=== PATIENT | female | born 1975 | race Caucasian/White ===

== ENCOUNTER 2019-04-05 14:06 | Outpatient (CLI) | payer BC, SELFPAY ==
--- NOTE | 2019-04-05 | US_ITS ---
WS: [id number] Pelvic ultrasound, 04/05/2019 Clinical Data: LEFT OVARIAN CYST Comparison: Pelvic ultrasound, 01/30/2018. Findings: The uterus measures 5.27 cm x 6.01 cm x 11.03 cm. Small nabothian cysts are seen. The endometrium is 0.52 cm. No intrauterine or abnormal intrauterine mass is seen. The left ovary measures 1.5 to cm x 1.7 cm x 3.56 cm with with a 1.0 x 1.96 x 2.3 simple ovarian cys t.. The right ovary measures 1.77 cm x 1.80 cm x 2.61 cm with small follicles. US/US pelvic with transvaginal Impression: 1. Negative uterus. 2. Left ovarian cyst.
--- NOTE | 2019-04-05 14:12 | US_ITS ---
WS: [id number] Pelvic ultrasound, 04/05/2019 Clinical Data: LEFT OVARIAN CYST Comparison: Pelvic ultrasound, 01/30/2018. Findings: The uterus measures 5.27 cm x 6.01 cm x 11.03 cm. Small nabothian cysts are seen. The endometrium is 0.52 cm. No intrauterine or abnormal intrauterine mass is seen. The left ovary measures 1.5 to cm x 1.7 cm x 3.56 cm with with a 1.0 x 1.96 x 2.3 simple ovarian cys t.. The right ovary measures 1.77 cm x 1.80 cm x 2.61 cm with small follicles.
== END 2019-04-05 14:07 | disposition home or self-care (01) ==
PROVIDERS: Family Provider Nurse Practitioner Family; PCP Nurse Practitioner Family; Visit Provider Nurse Practitioner Family
DX: N83.202 Unspecified ovarian cyst, left side (principal)
CPT/HCPCS: 76830; 76856

== ENCOUNTER 2019-05-07 20:00 | Outpatient (CLI) | payer BC, SELFPAY | END 2019-05-07 20:01 | disposition home or self-care (01) | LOC: SLEEP 05-08 08:33 | PROVIDERS: Visit Provider Nurse Practitioner Family | DX: G47.33 Obstructive sleep apnea (adult) (pediatric) (principal) | CPT/HCPCS: 95810; 95811 ==

== ENCOUNTER → 2019-05-31 15:26 | Outpatient (BNVA) | payer BC, SELFPAY | PROVIDERS: Visit Provider Nurse Practitioner Family | DX: R05 Cough (principal); H66.003 Acute suppurative otitis media without spontaneous rupture of ear drum, bilateral; I10 Essential (primary) hypertension; R07.1 Chest pain on breathing | CPT/HCPCS: 71046; 85025 ==

== ENCOUNTER → 2019-06-06 09:47 | Outpatient (BNVA) | payer BC, SELFPAY | PROVIDERS: Visit Provider Family Medicine | DX: R09.89 Other specified symptoms and signs involving the circulatory and respiratory systems (principal); I10 Essential (primary) hypertension | CPT/HCPCS: 80053; 80061; 84443 ==

== ENCOUNTER 2019-06-21 12:53 | Outpatient (CLI) | payer BC, SELFPAY ==
--- NOTE | 2019-06-21 13:30 | USCV_ITS ---
Jordyn Cervantes Age: 44 Gender: F : 1975 Exam Date: 06/21/2019 13:15 Ordering Phys: Bharati Odom MD Technologist: Stephanie Valdovinos Exam Location: [facility] [place] Indication: AFIB BP: / HR: 86 Rhythm: Sinus Technical Quality: TDS MEASUREMENTS (Male / Female) Normal Values 2D ECHO LV Diastolic Diameter PLAX 4.3 cm 4.2 - 5.9 / 3.9 - 5.3 cm LV Systolic Diameter PLAX 2.8 cm LV Chamber Size 2.8 cm IVS Diastolic Thickness 1.6 cm 0.6 - 1.0 / 0.6 - 0.9 cm IVS Systolic Thickness 1.8 cm LVPW Diastolic Thickness 1.6 cm 0.6 - 1.0 / 0.6 - 0.9 cm LVPW Systolic Thickness 1.8 cm RV Chamber Size 2.7 cm LVOT Diameter 2.1 cm LV Ejection Fraction 2D Teich 64.7 % LV Ejection Fraction MOD 2C 45.0 % LV Ejection Fraction 2C AL 46.0 % LA Diameter 4.4 cm LA Width 2.6 cm LA Height 2.1 cm RA Width 2.8 cm RA Height 2.8 cm Aorta at Sinotubular Diameter 3.1 cm M-MODE LV Diastolic Diameter MM 5.1 cm 4.2 - 5.9 / 3.9 - 5.3 cm LV Systolic Diameter MM 3.2 cm LV Ejection Fraction MM Teich 65.8 % IVS Diastolic Thickness MM 1.2 cm 0.6 - 1.0 / 0.6 - 0.9 cm IVS Systolic Thickness MM 1.8 cm LVPW Diastolic Thickness MM 1.3 cm 0.6 - 1.0 / 0.6 - 0.9 cm LVPW Systolic Thickness MM 1.9 cm RV Diastolic Diameter MM 1.8 cm Aortic Annulus Diameter 3.3 cm LA Ao Ratio MM 1.3 MV E Point Septal Separation 0.3 cm DOPPLER AV Peak Velocity 151.0 cm/s LVOT Peak Velocity 77.0 cm/s AV Area Cont Eq vti 1.8 cm squared AV Area Cont Eq pk 1.7 cm squared MV Area PHT 5.1 cm squared Mitral E to A Ratio 1.2 MV E' Velocity 10.0 cm/s Mitral E to MV E' Ratio 10.1 Mitral E to LV E' Lateral Ratio 9.0 Mitral E to LV E' Septal Ratio 11.7 TR Peak Velocity 119.4 cm/s TR Peak Gradient 5.7 mmHg TR Mean Velocity 79.7 cm/s TR Mean Gradient 3.0 mmHg TR Velocity Time Integral 23.9 cm TV Peak E Velocity 72.0 cm/s PV Peak Velocity 73.0 cm/s RV Acceleration Time 0.2 s RV Ejection Time 0.3 s RV AcT/ET 0.5 FINDINGS Left Ventricle Possibly normal LV size ejection fraction. Right Ventricle The right ventricle is normal in size and function. Right Atrium The right atrium is normal in size. Left Atrium Left atrium appears to be of upper limit of normal size Mitral Valve No gross abnormalities noted. Aortic Valve Could not be visualized well Tricuspid Valve Trace tricuspid valve regurgitation. Pulmonic Valve Pulmonic valve not well visualized. Pericardium Normal pericardium without effusion. Aorta Normal ascending aorta dimension. CONCLUSIONS Possibly normal LV size ejection fraction 55%. No gross wall motion normalities noted. Left atrium appears to be of upper limit of normal size. Trace tricuspid valve regurgitation. There is no pericardial effusion. There are no intracardiac masses. Comparison with the previous study is difficult because of the difference in the technical quality. Dr Parker Goodman MD FAC (Electronically Signed) Final Date: 21 June 2019 15:29 S
== END 2019-06-21 12:54 | disposition home or self-care (01) ==
PROVIDERS: Family Provider Family Medicine; PCP Family Medicine; Visit Provider Family Medicine
DX: I07.1 Rheumatic tricuspid insufficiency (principal); R09.89 Other specified symptoms and signs involving the circulatory and respiratory systems
CPT/HCPCS: 93306

== ENCOUNTER 2019-10-15 06:00 | Outpatient (RCR) | payer BC, SELFPAY | END 2019-11-01 23:59 | disposition home or self-care (01) | LOC: SPT 06:00 | PROVIDERS: PCP Family Medicine; Referring Provider Neurological Surgery; Visit Provider Neurological Surgery | DX: Z98.1 Arthrodesis status (principal) | CPT/HCPCS: 97110; 97161 ==

== ENCOUNTER 2019-11-02 06:00 | Outpatient (RCR) | payer BC, SELFPAY | END 2019-12-02 23:59 | disposition home or self-care (01) | LOC: SPT 06:00 | PROVIDERS: PCP Family Medicine; Referring Provider Neurological Surgery; Visit Provider Neurological Surgery | DX: Z98.1 Arthrodesis status (principal) | CPT/HCPCS: 97110 ==

== ENCOUNTER → 2019-12-02 15:36 | Outpatient (BNVA) | payer BC, SELFPAY | PROVIDERS: PCP Family Medicine; Referring Provider Family Medicine; Visit Provider Podiatrist Foot & Ankle Surgery | DX: M79.671 Pain in right foot (principal) | CPT/HCPCS: 73630 ==

== ENCOUNTER → 2020-01-01 11:00 | Outpatient (BNVA) | payer BC, SELFPAY | PROVIDERS: PCP Family Medicine; Visit Provider Family Medicine | DX: I10 Essential (primary) hypertension (principal); M54.5 Low back pain; G89.29 Other chronic pain; J45.20 Mild intermittent asthma, uncomplicated; J01.00 Acute maxillary sinusitis, unspecified | CPT/HCPCS: 80053; 80061; 84443; 85025 ==

== ENCOUNTER → 2020-01-08 15:54 | Outpatient (BNVA) | payer BC, SELFPAY | PROVIDERS: PCP Family Medicine; Visit Provider Podiatrist Foot & Ankle Surgery | DX: T14.8XXA Other injury of unspecified body region, initial encounter (principal) | CPT/HCPCS: 73630 ==

== ENCOUNTER 2020-03-11 18:56 | Emergency (ER) | payer BC, SELFPAY ==
[2020-03-11 19:07] VITALS: BP 167/91; PULSE 100; RESP 17; TEMP 36.7; O2SAT 99; BMI 53.1
--- NOTE | 2020-03-11 19:42 | W.ED.GENADLT ---
HPI - General Adult General: Chief complaint: General Medical Stated complaint: numbness on left side of face Time Seen by Provider: 03/11/20 19:42 History of Present Illness: HPI narrative: Patient is a well-appearing 44-year-old female seen for left-sided facial numbness. She describes the sensation as fuzzy, and states that it originated around the left eye roughly 2 weeks ago, but in the last day has spread to her left forehead, cheek, and perioral region. Sensation is intact, but she states it feels like the left side of my face is drunk. She denies pain, hearing loss, visual disturbance, loss of taste, and states that she has not noticed any drooping when she looks at herself in the mirror. She has no history of stroke, atrial fibrillation, TIA, complex migraines, recent sickness or fever. She has never been diagnosed with diabetes. Review of Systems General: Reports: 10 or more systems reviewed and unremarkable except in HPI and below PFSH ED PFSH: Medical History (Updated 03/11/20 @ 21:44 by Dayne Walsh MD) Asthma Asthma thought to be because of her allergies and she states that as long as she takes her medication and her Advair she does not need to use any albuterol inhalers. Chronic pain Hypertension Diagnosed in her mid 20s and has been on medication since then. She follows up with her primary care provider. IBS (irritable bowel syndrome) Diagnosed since her 30s. Not currently on any medication. Watches her diet. No pertinent past medical history Denies diabetes, seizures, DVT/PE PCP: Dr. Bharati Odom Polycystic disease, ovaries Patient states that she was diagnosed with PCOS in her 30s. Bleeding and endometrial protection currently with the Mirena. Surgical History History of back surgery 09/2019--- performed in [place]-had L4 and L5 fused Hx of section 2007 in [place] Hx of laparoscopy At the age of 19--laparoscopy performed for ovarian cysts-she was told that the cyst had spontaneously ruptured and she did not have to have anything done. Family History Family/Other Diabetes maternal aunt Stroke maternal aunt Hypertension maternal aunt, maternal uncle Father Hypertension Hyperlipidemia Mother Hypertension Hyperlipidemia Thyroid condition Grandmother Hypertension maternal Grandfather Hypertension maternal Denies family history of Colon cancer Ovarian cancer Heart disease Breast cancer Uterine cancer Social History Smoking and tobacco status: never smoked Second hand smoke exposure: Yes Alcohol intake: never Lives independently: Yes Household members: spouse and children Housing: House Marital status: Current occupational status: employed Current gender identity: Female Physical Exam Const: COMMON NORMALS: no acute distress, patient oriented x3 and alert HENMT: COMMON NORMALS: normocephalic and atraumatic HEAD & SCALP: normocephalic and atraumatic FACE & SINUS: normal facial exam (Patient states that sensation of light touch on both sides of the face feel) and face symmetric; no sinus tenderness, no ecchymosis, no erythema and no edema Eye: COMMON NORMALS: Equal, round and reactive pupils present, EOMs intact bilaterally and no scleral icterus PUPIL: Yes Equal, round and reactive pupils present Resp: COMMON NORMALS: normal respiratory effort and No retractions Cardio: COMMON NORMALS: regular rate, regular rhythm and No murmurs present (Cardio) RATE: regular rate RHYTHM: regular rhythm GI: COMMON NORMALS: Normal to inspection, nondistended, normoactive bowel sounds present, Soft to palpation and non-tender PALPATION: Yes Soft to palpation Neuro: COMMON NORMALS: patient oriented x3 SENSORIUM/ORIENTATION: Yes alert Skin: COMMON NORMALS: no rashes or lesions noted GENERAL SKIN EXAM: no rashes or lesions noted Course Vital Signs: Vital signs: Vital Signs Temperature 98.1 F 03/11/20 19:07 Pulse Rate 110 H 03/11/20 21:51 Respiratory Rate 16 03/11/20 21:51 Blood Pressure 140/91 03/11/20 21:51 Pulse Oximetry 96 03/11/20 21:51 MDM - General Adult MDM Narrative: Medical decision making narrative: Patient remained hemodynamically stable throughout ED course. CT of the head shows no acute process. Laboratory evaluation reveals borderline elevated glucose. I discussed with her that sometimes high glucose levels can cause the small arteries feeding nerves to stop functioning, causing various neurologic effects. She agrees to follow close with primary care to work on a strategy to keep sugars down. She be discharged in stable condition. Lab Data: Labs: Lab Results 03/11/20 03/11/20 Range/Units 20:55 20:55 WBC 9.3 (4.0-10.0) 10^3/ uL RBC 4.63 (4.1-5.3) 10^6/u L Hgb 13.6 (11.5-15.3) g/dL Hct 40.1 (37.0-47.0) % MCV 86.6 (81-99) fL MCH 29.4 (28.0-34.0) pg MCHC 33.9 (30.0-36.0) g/dL RDW 13.0 (12.1-15.1) % Plt Count 317 (130-400) 10^3/c mm MPV 9.5 (7.4-10.4) fL Neut % (Auto) 65.3 % Lymph % (Auto) 26.2 % [place] % (Auto) 6.1 % Eos % (Auto) 1.8 % Baso % (Auto) 0.3 % Neut # (Auto) 6.09 (1.8-7.7) 10^3/u L Lymph # (Auto) 2.4 (0.8-4.8) 10^3/u L [place] # (Auto) 0.6 (0.2-0.9) 10^3/u L Eos # (Auto) 0.2 (0.0-0.8) 10^3/u L Baso # (Auto) 0.0 (0.0-0.1) 10^3/u L Nucleated RBC % (a uto) 0 % Nucleated RBCs # 0.0 /100WBC Sodium 140 (136-145) mmol/L Potassium 3.4 L (3.5-5.1) mmol/L Chloride 101 (98-107) mmol/L Carbon Dioxide 29 (22-29) mmol/L Anion Gap 13.4 (5-19) BUN 11 (6-20) mg/dL Creatinine 0.7 (0.5-0.9) mg/dL GFR Calculation 90.9 (90-130) mL/min Glucose 146 H (65-115) mg/dL Calculated Osmolal ity 292 (285-295) mOsm/k g Calcium 9.7 (8.5-10.5) mg/dL Total Bilirubin 0.7 (0.15-1.2) mg/dL AST 45 H (0-32) U/L ALT 37 H (0-33) U/L Alkaline Phosphata se 94 (35-105) IU/L Total Protein 7.3 (6.6-8.7) g/dL Albumin 4.3 (3.5-5.2) g/dL Globulin 3.0 (1.3-4.6) g/dL Discharge Plan Discharge Patient Disposition: Home Clinical Impression: Left facial numbness, Blood glucose elevated Condition: Stable Prescriptions: No Action cholecalciferol (vitamin D3) 25 mcg (1,000 unit) capsule 25 mcg PO DAILY@0600 RF: 0 ascorbic acid (vitamin C) 500 mg capsule 500 mg PO DAILY@0600 RF: 0 calcium carbonate [Calcium 600] 600 mg calcium (1,500 mg) tablet 900 mg PO DAILY@0600 RF: 0 Mirena 20 mcg/24 hours (5 yrs) 52 mg intrauterine device See Rx Instructions .ROUTE .COMPLEX RF: 0 baclofen 10 mg tablet 10 mg PO TID PRN (Reason: muscle spasm) Qty: 90 RF: 2 fexofenadine-pseudoephedrine [Kalli-D 12 Hour] 60-120 mg tablet extended release 12 hr 1 tab PO Q12H PRN (Reason: allergy symptoms) Qty: 60 RF: 2 fluticasone propion-salmeterol 250-50 mcg/dose blister with device See Rx Instructions .ROUTE .COMPLEX Qty: 60 RF: 2 (DME) Bone Stimulator See Rx Instructions .Route .MEDSUPPLY Qty: 1 RF: 0 Lyrica 50 mg PO TID RF: 0 zinc 50 mg Tablet 50 mg PO DAILY@0600 RF: 0 Glucosamine 1 tab PO DAILY@0600 RF: 0 magnesium 1 tab PO DAILY@0600 RF: 0 metoprolol tartrate 50 mg tablet 50 mg PO BID@0600,1900 RF: 0 triamterene-hydrochlorothiazid 37.5-25 mg tablet 1 tab PO DAILY@0600 RF: 0 Discharge Orders: Discharge ED (Routine); Ordered 03/11/20 Ordered By: Dayne Walsh Referrals: Bharati Odom MD [Primary Care Provider] - Activity Restrictions/Additional Instructions: CT the head shows no evidence of stroke, intracranial bleed, intracranial mass, or other abnormality. Oftentimes, high sugar levels in the blood can cause neurologic symptoms. Please follow-up with your primary care physician to discuss strategies to keep sugar levels normal. Coding Level of Care Code ED Cylinder Inspector for Rubi Cobian
[2020-03-11 19:46] VITALS: BP 156/97; PULSE 105; RESP 17; O2SAT 100
--- NOTE | 2020-03-11 20:17 | CTR_ITS ---
PROCEDURE INFORMATION: Exam: CT Head Without Contrast Exam date and time: 03/11/2020 8:25 PM Age: 44 years old Clinical indication: Numbness / parasthesia; Left; Additional info: Facial numbness TECHNIQUE: Imaging protocol: Computed tomography of the head without contrast. Radiation optimization: All CT scans at this facility use at least one of these dose optimization techniques: automated exposure control; mA and/or kV adjustment per patient size (includes targeted exams where dose is matched to clinical indication); or iterative reconstruction. COMPARISON: CT head wo con* [id number] 02/05/2018 4:03 AM RADIATION DOSE METRICS: Total DLP (mGy-cm): 876.9 FINDINGS: Brain: Normal. No hemorrhage. Unremarkable white matter. No mass effect. Cerebral ventricles: No ventriculomegaly. Bones/joints: Unremarkable. No acute fracture. Paranasal sinuses: Visualized sinuses are unremarkable. No fluid levels. Mastoid air cells: Visualized mastoid air cells are well aerated. Soft tissues: Unremarkable. CT/CT head wo con* [id number] IMPRESSION: No acute intracranial abnormality. Radiation Dose CTDIVOL = (mGy): DLP = 876.9 (mGy-cm)
[2020-03-11 21:08] LABS: Basophils % 0.3 %; Eosinophils # 0.2 10^3/uL (0.0-0.8); Eosinophils % 1.8 %; Hematocrit 40.1 % (37.0-47.0); Hemoglobin 13.6 g/dL (11.5-15.3); Lymphocytes # 2.4 10^3/uL (0.8-4.8); Lymphocytes % 26.2 %; Mean Corpuscular HGB Conc 33.9 g/dL (30.0-36.0); Mean Corpuscular Hemoglobin 29.4 pg (28.0-34.0); Mean Corpuscular Volume 86.6 fL (81-99); Mean Platelet Volume 9.5 fL (7.4-10.4); Monocytes # 0.6 10^3/uL (0.2-0.9); Monocytes % 6.1 %; Neutrophils # 6.09 10^3/uL (1.8-7.7); Neutrophils % 65.3 %; Nucleated Red Blood Cells % 0 %; Platelet Count 317 10^3/cmm (130-400); Red Blood Count 4.63 10^6/uL (4.1-5.3); White Blood Count 9.3 10^3/uL (4.0-10.0)
[2020-03-11 21:25] LABS: Alanine Aminotransferase 37 U/L (0-33); Albumin Level 4.3 g/dL (3.5-5.2); Alkaline Phosphatase 94 IU/L (35-105); Anion Gap 13.4 (5-19); Aspartate Amino Transferase 45 U/L (0-32); Blood Urea Nitrogen 11 mg/dL (6-20); Calcium 9.7 mg/dL (8.5-10.5); Carbon Dioxide 29 mmol/L (22-29); Chloride 101 mmol/L (98-107); Glomerular Filtration Rate 90.9 mL/min (90-130); Glucose 146 mg/dL (65-115); Osmolality Calculated 292 mOsm/kg (285-295); Potassium 3.4 mmol/L (3.5-5.1); Sodium 140 mmol/L (136-145); Total Bilirubin 0.7 mg/dL (0.15-1.2); Total Protein 7.3 g/dL (6.6-8.7)
[2020-03-11 21:29] VITALS: BP 140/91; PULSE 104; RESP 17; O2SAT 99
[2020-03-11 21:30] VITALS: BP 140/91; PULSE 104; RESP 17; O2SAT 99
[2020-03-11 21:51] VITALS: BP 140/91; PULSE 110; RESP 16; O2SAT 96
== END 2020-03-11 21:52 | disposition home or self-care (01) ==
PROVIDERS: Emergency Provider Student in an Organized Health Care Education/Training Program; PCP Family Medicine
DX: R20.0 Anesthesia of skin (principal); R73.9 Hyperglycemia, unspecified; I10 Essential (primary) hypertension; Z77.22 Contact with and (suspected) exposure to environmental tobacco smoke (acute) (chronic)
CPT/HCPCS: 12345; 70450; 80053; 85025; 99282; 99283

== ENCOUNTER 2020-03-13 11:14 | Outpatient (CLI) | payer BC, SELFPAY ==
--- NOTE | 2020-03-13 11:20 | XR_ITS ---
WS: [id number] FOOT RIGHT TECHNIQUE: 3 views of the right foot CLINICAL INFORMATION: S99.929A - Unspecified injury of unspecified foot, initial encounter COMPARISON: None. FINDINGS: Diffuse soft tissue edema. Osteopenia. Hallux valgus. No acute fractures. Normal metatarsals. 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 Plantar and Achilles calcanea l spurring. XR/XR foot RT min 3V* [id number] IMPRESSION: 1. Ununited fracture base of the fifth metatarsal is unchanged in appearance. 2. Diffuse soft tissue edema lower leg and foot. 3. Plantar and Achilles calcaneal spurring. 4. Hallux valgus.
== END 2020-03-13 11:15 | disposition home or self-care (01) ==
LOC: RADWPI 11:19
PROVIDERS: PCP Family Medicine; Visit Provider Podiatrist Foot & Ankle Surgery
DX: S92.351A Displaced fracture of fifth metatarsal bone, right foot, initial encounter for closed fracture (principal); X58.XXXA Exposure to other specified factors, initial encounter; R60.0 Localized edema; M77.31 Calcaneal spur, right foot; M20.11 Hallux valgus (acquired), right foot
CPT/HCPCS: 73630

== ENCOUNTER 2020-03-26 09:54 | Outpatient (CLI) | payer BC, SELFPAY ==
--- NOTE | 2020-03-26 10:03 | MM_ITS ---
WS: [id number] BILATERAL SCREENING DIGITAL MAMMOGRAM WITH CAD HISTORY: SCREENING COMPARISON: 11/06/2018 and 08/03/2016 Bilateral CC and MLO views submitted. Computer aided detection analyzed. Breast composition: There are scattered areas of fibroglandular density. No suspicious masses, microc alcifications or architectural distortion. MM/[place] [id number] IMPRESSION: BI-RADS: 1-Negative FOLLOW UP: 1 Year Follow-up
== END 2020-03-26 09:55 | disposition home or self-care (01) ==
LOC: RADSHAW 09:56
PROVIDERS: PCP Family Medicine; Visit Provider Obstetrics & Gynecology
DX: Z12.31 Encounter for screening mammogram for malignant neoplasm of breast (principal)
CPT/HCPCS: 77067

== ENCOUNTER → 2020-04-10 09:22 | Outpatient (BNVA) | payer OTHER, SELFPAY | PROVIDERS: PCP Family Medicine; Visit Provider Family Medicine | DX: R30.0 Dysuria (principal); M54.5 Low back pain; G89.29 Other chronic pain; R20.0 Anesthesia of skin; R73.09 Other abnormal glucose | CPT/HCPCS: 80053; 81000; 83036 ==

== ENCOUNTER 2020-04-20 08:33 | Outpatient (CLI) | payer OTHER, SELFPAY ==
--- NOTE | 2020-04-20 08:39 | XR_ITS ---
WS: [id number] FOOT RIGHT TECHNIQUE: 3 views of the right foot CLINICAL INFORMATION: S92.351A - Displaced fracture of fifth metatarsal bone, right foot, initial enc ounter for closed fracture COMPARISON: March 13, 2020 FINDINGS: Nondisplaced fracture involving the base of fifth metatarsal is unchanged in appearance. No significa nt interval healing compared to prior examination. Osteopenia. Hallux valgus. Plantar and Achilles ca lcaneal spurring. XR/XR foot RT min 3V* [id number] IMPRESSION: 1. Ununited fracture base of the fifth metatarsal is unchanged. 2. Plantar and Achilles calcaneal spurring. 3. Hallux valgus.
== END 2020-04-20 08:34 | disposition home or self-care (01) ==
LOC: RADWPI 08:38
PROVIDERS: PCP Family Medicine; Visit Provider Podiatrist Foot & Ankle Surgery
DX: S92.351A Displaced fracture of fifth metatarsal bone, right foot, initial encounter for closed fracture (principal); X58.XXXA Exposure to other specified factors, initial encounter; M77.31 Calcaneal spur, right foot; M20.11 Hallux valgus (acquired), right foot
CPT/HCPCS: 73630

== ENCOUNTER 2020-06-05 09:56 | Outpatient (CLI) | payer OTHER, SELFPAY ==
[2020-06-05 11:34] LABS: Free T4 Free Thyroxine 0.76 ng/dL (0.82-1.77); Thyroid Stimulating Hormone 1.51 uIU/mL (0.27-4.20)
== END 2020-06-05 09:57 | disposition home or self-care (01) ==
PROVIDERS: PCP Family Medicine; Visit Provider Internal Medicine
DX: E28.2 Polycystic ovarian syndrome (principal); R00.2 Palpitations; R63.5 Abnormal weight gain; R73.03 Prediabetes; S92.351K Displaced fracture of fifth metatarsal bone, right foot, subsequent encounter for fracture with nonunion
CPT/HCPCS: 36415; 73630; 84439; 84443; 99204

== ENCOUNTER 2020-06-07 10:35 | Outpatient (CLI) | payer OTHER, SELFPAY ==
[2020-06-07 12:13] LABS: Urine Creatinine 74 mg/dL (28-217)
[2020-06-07 12:51] LABS: Total Volume Urine 2450 ml
[2020-06-10 17:07] LABS: Free Cortisol Urine 9.3 mcg/24 h (4.0-50.0); Total Urine 2450 mL
== END 2020-06-07 10:36 | disposition home or self-care (01) ==
PROVIDERS: PCP Family Medicine; Visit Provider Internal Medicine
DX: R63.5 Abnormal weight gain (principal)
CPT/HCPCS: 82530; 82570

== ENCOUNTER 2020-06-12 08:13 | Outpatient (CLI) | payer OTHER, SELFPAY ==
[2020-06-12 10:52] LABS: Free T4 Free Thyroxine 0.78 ng/dL (0.82-1.77); Thyroid Stimulating Hormone 1.68 uIU/mL (0.27-4.20)
== END 2020-06-12 08:14 | disposition home or self-care (01) ==
PROVIDERS: PCP Family Medicine; Visit Provider Internal Medicine
DX: E28.2 Polycystic ovarian syndrome (principal); M84.30XA Stress fracture, unspecified site, initial encounter for fracture; R73.03 Prediabetes; X58.XXXA Exposure to other specified factors, initial encounter
CPT/HCPCS: 36415; 84439; 84443

== ENCOUNTER 2020-07-03 11:29 | Outpatient (CLI) | payer OTHER, SELFPAY | END 2020-07-03 11:30 | disposition home or self-care (01) | LOC: SPT 11:35 | PROVIDERS: PCP Family Medicine; Visit Provider Podiatrist Foot & Ankle Surgery | DX: Z46.89 Encounter for fitting and adjustment of other specified devices (principal); S92.351K Displaced fracture of fifth metatarsal bone, right foot, subsequent encounter for fracture with nonunion; X58.XXXD Exposure to other specified factors, subsequent encounter | CPT/HCPCS: 97760; L3030 ==

== ENCOUNTER → 2020-07-17 15:17 | Outpatient (BNVA) | payer OTHER, SELFPAY | PROVIDERS: PCP Family Medicine; Visit Provider Podiatrist Foot & Ankle Surgery | DX: S92.351K Displaced fracture of fifth metatarsal bone, right foot, subsequent encounter for fracture with nonunion (principal); X58.XXXD Exposure to other specified factors, subsequent encounter; M79.671 Pain in right foot | CPT/HCPCS: 73630 ==

== ENCOUNTER 2020-09-04 15:06 | Outpatient (CLI) | payer OTHER, SELFPAY ==
--- NOTE | 2020-09-04 15:15 | MR_ITS ---
WS: [id number] MRI HEAD WITH CONTRAST TECHNIQUE: Sagittal T1, T2 axial, T2 axial FLAIR, axial susceptibility weighted imaging, axial diffus ion weighted images, and coronal T2 images were obtained. Pre and post-T1 axial and post T1 coronal i mages. ADC and FSPGR images. CLINICAL INFORMATION: E03.8 - Other specified hypothyroidism COMPARISON: CT March 11, 2020. MRI 11 FINDINGS: No evidence of restricted diffusion to suggest acute ischemia. Ventricular system and basal cisterns are patent. No suspicious intracranial signal abnormalities. Normal nuno-white differentiation. No ev idence of mass or mass effect. Normal posterior fossa. Normal vascular flow voids at the skull base. No extra-axial fluid collection s. Paranasal sinuses and mastoid air cells are well aerated. Partially empty sella. Normal optic chiasm and pituitary infundibulum. Normal cavernous sinuses and M lashell's cave. No evidence of sellar or suprasellar mass. No evidence of pituitary microadenoma. No ab normal intracranial enhancement. Normal dural venous sinuses. MR/MR head wo/w con [id number] IMPRESSION: 1. No evidence of restricted diffusion to suggest acute ischemia. 2. No suspicious intracranial signal abnormalities. Normal nuno-white differen tiation. 3. Normal optic chiasm and pituitary infundibulum. Partially empty sella uncha nged since 2017. 4. No evidence of sellar or suprasellar mass. No evidence of microadenoma. 5. No abnormal intracranial enhancement. 6. No other significant findings.
[2020-09-04] MEDS: gadobenate dimeglumine 20 mL vial IV (16:00)
== END 2020-09-04 15:07 | disposition home or self-care (01) ==
LOC: RADSHAW 15:13
PROVIDERS: PCP Family Medicine; Visit Provider Internal Medicine
DX: E03.8 Other specified hypothyroidism (principal); I10 Essential (primary) hypertension
CPT/HCPCS: 70553; 80053; 80061; 84443; 85025; A9577

== ENCOUNTER → 2020-09-18 13:50 | Outpatient (BNVA) | payer OTHER, SELFPAY | PROVIDERS: PCP Family Medicine; Visit Provider Podiatrist Foot & Ankle Surgery | DX: S92.351K Displaced fracture of fifth metatarsal bone, right foot, subsequent encounter for fracture with nonunion (principal); M79.673 Pain in unspecified foot; X58.XXXD Exposure to other specified factors, subsequent encounter | CPT/HCPCS: 73630 ==

== ENCOUNTER 2020-09-25 08:17 | Outpatient (CLI) | payer OTHER, SELFPAY ==
[2020-09-25 09:14] LABS: Anion Gap 16.2 (5-19); Blood Urea Nitrogen 11 mg/dL (6-20); Calcium 9.3 mg/dL (8.5-10.5); Carbon Dioxide 26 mmol/L (22-29); Chloride 100 mmol/L (98-107); Free T4 Free Thyroxine 0.75 ng/dL (0.82-1.77); Glomerular Filtration Rate 90.5 mL/min (90-130); Glucose 89 mg/dL (65-115); Osmolality Calculated 285 mOsm/kg (285-295); Potassium 4.2 mmol/L (3.5-5.1); Sodium 138 mmol/L (136-145)
[2020-09-25 09:42] LABS: Prolactin 15.92 ng/mL (4.8-23.3)
[2020-09-29 16:17] LABS: Adrenocorticotropic Hormone 17 pg/mL (6-50)
== END 2020-09-25 08:18 | disposition home or self-care (01) ==
LOC: LAB 08:22
PROVIDERS: PCP Family Medicine; Visit Provider Internal Medicine
DX: E03.8 Other specified hypothyroidism (principal)
CPT/HCPCS: 36415; 80048; 82024; 82533; 84146; 84439

== ENCOUNTER 2020-11-04 07:43 | Outpatient (CLI) | payer OTHER, SELFPAY ==
[2020-11-04 08:37] LABS: Anion Gap 13.9 (5-19); Blood Urea Nitrogen 10 mg/dL (6-20); Calcium 8.6 mg/dL (8.5-10.5); Carbon Dioxide 26 mmol/L (22-29); Chloride 101 mmol/L (98-107); Glomerular Filtration Rate 108.1 mL/min (90-130); Glucose 112 mg/dL (65-115); Osmolality Calculated 284 mOsm/kg (285-295); Potassium 3.9 mmol/L (3.5-5.1); Sodium 137 mmol/L (136-145)
[2020-11-04 08:44] LABS: Free T4 Free Thyroxine 0.86 ng/dL (0.82-1.77)
== END 2020-11-04 07:44 | disposition home or self-care (01) ==
LOC: LAB 07:48
PROVIDERS: PCP Family Medicine; Visit Provider Internal Medicine
DX: E03.8 Other specified hypothyroidism (principal); I10 Essential (primary) hypertension; R73.03 Prediabetes; R79.89 Other specified abnormal findings of blood chemistry
CPT/HCPCS: 36415; 80048; 84439

== ENCOUNTER 2020-12-15 12:50 | Outpatient (CLI) | payer OTHER, SELFPAY ==
[2020-12-15 13:53] LABS: Prolactin 9.38 ng/mL (4.8-23.3)
[2020-12-15 14:19] LABS: Cortisol Random 9.14 ug/dL (2.47-19.5); Free T4 Free Thyroxine 1.23 ng/dL (0.82-1.77)
[2020-12-20 23:47] LABS: Adrenocorticotropic Hormone 26 pg/mL (6-50)
== END 2020-12-15 12:51 | disposition home or self-care (01) ==
LOC: LAB 13:04
PROVIDERS: PCP Family Medicine; Visit Provider Internal Medicine
DX: E03.8 Other specified hypothyroidism (principal)
CPT/HCPCS: 36415; 82024; 82533; 84146; 84439

== ENCOUNTER → 2020-12-17 08:14 | Outpatient (BNVA) | payer OTHER, SELFPAY | PROVIDERS: PCP Family Medicine; Visit Provider Podiatrist Foot & Ankle Surgery | DX: S92.351K Displaced fracture of fifth metatarsal bone, right foot, subsequent encounter for fracture with nonunion (principal); M20.11 Hallux valgus (acquired), right foot | CPT/HCPCS: 73630 ==

== ENCOUNTER 2021-01-01 15:31 | Outpatient (CLI) | payer OTHER, SELFPAY ==
--- NOTE | 2021-01-01 15:45 | XR_ITS ---
WS: [id number] SCREENING DEXA SCAN Proficient CLINICAL INFORMATION: central hypogonadism, history of estrogen deficiency COMPARISON: None. FINDINGS: Bone mineral density in the left forearm measures 0.93 g/ cm2 with a T score of 0.7 and Z score of 0. 7 Left femoral neck bone mineral density measures 1.374 g/cm2. This corresponds to a T score of 2.9 and Z score of 2.4. Right femoral neck bone mineral density measures 1.274 g/cm2. This corresponds to a T score 2.1of and Z score of 1.6. Mean femoral neck bone mineral density measures 1.324 g/cm2. This corresponds to a T score of 2.5 and Z score of 2.0. XR/XR DEXA axial skeleton* [id number] IMPRESSION: Normal bone mineralization. Patient's FRAX calculated 10 year probability for major osteoporotic fracture i s 3.6 % and osteoporotic hip fracture is 0.0%.
== END 2021-01-01 15:32 | disposition home or self-care (01) ==
PROVIDERS: PCP Family Medicine; Visit Provider Internal Medicine
DX: E23.0 Hypopituitarism (principal)
CPT/HCPCS: 77080

== ENCOUNTER → 2021-03-11 08:08 | Outpatient (BNVA) | payer OTHER, SELFPAY | PROVIDERS: PCP Family Medicine; Visit Provider Obstetrics & Gynecology | DX: Z30.431 Encounter for routine checking of intrauterine contraceptive device (principal) | CPT/HCPCS: 76830 ==

== ENCOUNTER → 2021-04-13 10:10 | Outpatient (BNVA) | payer OTHER, SELFPAY | PROVIDERS: PCP Family Medicine; Visit Provider Nurse Practitioner Family | DX: Z20.822 Contact with and (suspected) exposure to COVID-19 (principal) | CPT/HCPCS: 87635 ==

== ENCOUNTER 2021-04-16 07:44 | Outpatient (CLI) | payer OTHER, SELFPAY ==
[2021-04-16 07:50] VITALS: BP 117/80; PULSE 93; RESP 16; TEMP 36.2; O2SAT 98; BMI 49.6
[2021-04-16 08:42] VITALS: BP 110/78; PULSE 90; RESP 18; TEMP 36.6; O2SAT 96
[2021-04-16 09:36] VITALS: BP 104/65; PULSE 82; RESP 16; TEMP 36.4; O2SAT 97
== END 2021-04-16 07:45 | disposition home or self-care (01) ==
LOC: OPS 07:45
PROVIDERS: PCP Family Medicine; Visit Provider Family Medicine
DX: U07.1 COVID-19 (principal)
CPT/HCPCS: 96365

== ENCOUNTER 2021-04-30 07:59 | Outpatient (CLI) | payer OTHER, SELFPAY ==
--- NOTE | 2021-04-30 08:00 | MM_ITS ---
WS: [id number] BILATERAL SCREENING DIGITAL MAMMOGRAM WITH CAD HISTORY: Screening exam. COMPARISON: 03/26/2020, 11/06/2018 Bilateral CC and MLO views submitted. Computer aided detection analyzed. Breast composition: There are scattered areas of fibroglandular density. No suspicious masses, microc alcifications or architectural distortion. MM/[place] [id number] IMPRESSION: BI-RADS: 1-Negative FOLLOW UP: 1 Year Follow-up
== END 2021-04-30 08:00 | disposition home or self-care (01) ==
LOC: RADSHAW 08:01
PROVIDERS: PCP Family Medicine; Visit Provider Obstetrics & Gynecology
DX: Z12.31 Encounter for screening mammogram for malignant neoplasm of breast (principal)
CPT/HCPCS: 77067

== ENCOUNTER 2021-05-11 16:53 | Outpatient (CLI) | payer OTHER, SELFPAY ==
[2021-05-11 19:18] LABS: Thyroid Stimulating Hormone 0.88 uIU/mL (0.27-4.20)
[2021-05-12 21:13] LABS: Blood Urea Nitrogen 11 mg/dL (6-20); Carbon Dioxide 25 mmol/L (22-29); Chloride 97 mmol/L (98-107); Glomerular Filtration Rate 90.1 mL/min (90-130); Glucose 91 mg/dL (65-115); Osmolality Calculated 281 mOsm/kg (285-295); Sodium 136 mmol/L (136-145)
[2021-05-12 21:18] LABS: Free T4 Free Thyroxine 1.26 ng/dL (0.82-1.77)
== END 2021-05-11 16:54 | disposition home or self-care (01) ==
LOC: LAB 17:03
PROVIDERS: PCP Family Medicine; Visit Provider Internal Medicine
DX: E03.8 Other specified hypothyroidism (principal)
CPT/HCPCS: 80048; 84439; 84443

== ENCOUNTER → 2021-06-01 08:07 | Outpatient (BNVA) | payer OTHER, SELFPAY | PROVIDERS: PCP Family Medicine; Visit Provider Obstetrics & Gynecology | DX: N83.201 Unspecified ovarian cyst, right side (principal) | CPT/HCPCS: 76830 ==

== ENCOUNTER 2021-07-12 17:41 | Outpatient (CLI) | payer OTHER, SELFPAY ==
[2021-07-12 21:21] LABS: Free T4 Free Thyroxine 1.33 ng/dL (0.82-1.77); Thyroid Stimulating Hormone 0.05 uIU/mL (0.27-4.20)
== END 2021-07-12 17:42 | disposition home or self-care (01) ==
LOC: LAB 17:43
PROVIDERS: PCP Family Medicine; Visit Provider Internal Medicine
DX: E03.8 Other specified hypothyroidism (principal)
CPT/HCPCS: 84439; 84443

== ENCOUNTER 2021-07-29 17:04 | Outpatient (CLI) | payer OTHER, SELFPAY ==
[2021-07-29 20:42] LABS: Free T4 Free Thyroxine 1.39 ng/dL (0.82-1.77); Thyroid Stimulating Hormone 0.03 uIU/mL (0.27-4.20)
== END 2021-07-29 17:05 | disposition home or self-care (01) ==
LOC: LAB 17:05
PROVIDERS: PCP Family Medicine; Visit Provider Internal Medicine
DX: E03.8 Other specified hypothyroidism (principal)
CPT/HCPCS: 84439; 84443

== ENCOUNTER 2021-08-24 17:24 | Outpatient (CLI) | payer OTHER, SELFPAY ==
[2021-08-24 18:31] LABS: Free T4 Free Thyroxine 1.41 ng/dL (0.82-1.77); Thyroid Stimulating Hormone 0.01 uIU/mL (0.27-4.20)
== END 2021-08-24 17:25 | disposition home or self-care (01) ==
PROVIDERS: PCP Family Medicine; Visit Provider Internal Medicine
DX: Z98.1 Arthrodesis status (principal)
CPT/HCPCS: 84439; 84443

== ENCOUNTER → 2021-12-07 08:05 | Outpatient (BNVA) | payer OTHER, SELFPAY | PROVIDERS: PCP Family Medicine; Visit Provider Obstetrics & Gynecology | DX: N83.201 Unspecified ovarian cyst, right side (principal); Z97.5 Presence of (intrauterine) contraceptive device | CPT/HCPCS: 76830 ==

== ENCOUNTER 2021-12-09 17:11 | Outpatient (CLI) | payer OTHER, SELFPAY ==
[2021-12-09 21:21] LABS: Estmated Average Glucose 117; Hemoglobin A1C 5.7 % (4.0-6.0)
[2021-12-09 21:48] LABS: Free T4 Free Thyroxine 1.07 ng/dL (0.82-1.77)
== END 2021-12-09 17:12 | disposition home or self-care (01) ==
LOC: LAB 17:20
PROVIDERS: PCP Family Medicine; Visit Provider Internal Medicine
DX: R73.03 Prediabetes (principal)
CPT/HCPCS: 83036; 84439

== ENCOUNTER 2021-12-17 08:38 | Outpatient (CLI) | payer OTHER, SELFPAY ==
[2021-12-17 10:20] LABS: Cortisol Random 5.61 ug/dL (2.47-19.5)
[2021-12-21 13:17] LABS: IGF1 LC/MS 141 ng/mL (52-328)
== END 2021-12-17 08:39 | disposition home or self-care (01) ==
LOC: LAB 08:41
PROVIDERS: PCP Family Medicine; Visit Provider Internal Medicine
DX: E23.7 Disorder of pituitary gland, unspecified (principal)
CPT/HCPCS: 36415; 82533; 84305

== ENCOUNTER → 2021-12-30 11:57 | Outpatient (BNVA) | payer OTHER, SELFPAY | PROVIDERS: PCP Family Medicine; Visit Provider Family Medicine | DX: I10 Essential (primary) hypertension (principal); J45.20 Mild intermittent asthma, uncomplicated; R73.03 Prediabetes; G89.29 Other chronic pain; J01.00 Acute maxillary sinusitis, unspecified | CPT/HCPCS: 80053; 80061; 85025 ==

== ENCOUNTER → 2022-02-13 14:30 | Outpatient (BNVA) | payer OTHER, SELFPAY | PROVIDERS: PCP Family Medicine; Visit Provider Family Medicine | DX: J02.9 Acute pharyngitis, unspecified (principal); R50.9 Fever, unspecified; H93.90 Unspecified disorder of ear, unspecified ear; J11.1 Influenza due to unidentified influenza virus with other respiratory manifestations | CPT/HCPCS: 87400; 87880 ==

== ENCOUNTER → 2022-03-21 09:38 | Outpatient (BNVA) | payer OTHER, SELFPAY | PROVIDERS: PCP Family Medicine; Visit Provider Obstetrics & Gynecology | DX: Z01.419 Encounter for gynecological examination (general) (routine) without abnormal findings (principal) | CPT/HCPCS: 87624 ==

== ENCOUNTER 2022-05-24 16:59 | Outpatient (CLI) | payer OTHER, SELFPAY ==
[2022-05-24 18:23] LABS: Thyroid Stimulating Hormone 0.94 uIU/mL (0.27-4.20)
[2022-05-24 21:00] LABS: Free T4 Free Thyroxine 1.14 ng/dL (0.82-1.77)
[2022-05-27 02:30] LABS: T3 Total 109 ng/dL (76-181)
== END 2022-05-24 17:00 | disposition home or self-care (01) ==
LOC: LAB 17:01
PROVIDERS: PCP Family Medicine; Visit Provider Internal Medicine
DX: E66.9 Obesity, unspecified (principal)
CPT/HCPCS: 36415; 84439; 84443; 84480

== ENCOUNTER 2022-06-15 08:34 | Emergency (ER) | payer OTHER, SELFPAY ==
[2022-06-15 08:39] VITALS: BP 117/80; PULSE 107; RESP 16; TEMP 36.7; O2SAT 99; BMI 47.9
--- NOTE | 2022-06-15 09:06 | XR_ITS ---
WS: [id number] XR chest 1V portable [id number] REASON FOR EXAM: dyspnea/cough FINDINGS: Thoracic aorta and mediastinum are within normal limits. Normal heart size. Calcified granulomatous disease in both hemithoraces. No acute/subacute pulmonary parenchymal or pleural abnormality. Moderate changes of degenerative spondylosis in the mid and lower thoracic spine. XR/XR chest 1V portable [id number] IMPRESSION: No acute chest abnormality.
--- NOTE | 2022-06-15 09:14 | ECG_ITS ---
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
--- NOTE | 2022-06-15 09:19 | CT_ITS ---
WS: [id number] CT ABDOMEN AND PELVIS NONCONTRAST HISTORY: Abdominal pain TECHNIQUE: Imaging performed through the abdomen and pelvis. Coronal and sagittal reformats are submi tted. All CT scans at [facility] use at least one of these dose optimization techniques: auto mated exposure control; mA and/or kV adjustment per patient size (includes targeted exams where dose is matched to clinical indication); or iterative reconstruction. DLP: 1213.63 mGy.cm COMPARISON: None available. Lower thorax: Lung bases are clear. Visualized heart is normal. No hiatal hernia. Liver: Mild hepatomegaly and hepatic steatosis. No bile duct dilatation or mass. Gallbladder: Normal size. Very mild increased attenuation within the gallbladder. No wall thickening identified or fluid. Pancreas: Normal size and attenuation. Normal pancreatic duct. No pancreatitis or mass. Spleen: Normal. Adrenal glands: Normal. No mass. Right kidney: Normal size kidney with no mass or hydronephrosis. Left kidney: Normal size kidney with no mass or hydronephrosis. Aorta: Normal abdominal aorta, no aneurysm or atherosclerosis. No free fluid, intraperitoneal air or significant lymphadenopathy. GI tract: Normal noncontrast imaging of the stomach, small bowel and colon. No obstruction or wall th ickening. Normal appendix. Abdominal wall: Negative. No hernia. Pelvis: Normal position of IUD. Small RIGHT ovarian follicle. No free fluid or mass. Nondistended geraldo dder. Osseous structures: Thoracolumbar curvature. L4-S1 lumbar fusion. Lumbar stenosis at L3-[address]/CT abdomen pelvis wo con [id number] IMPRESSION: 1. No appendicitis or renal obstruction. 2. Mild increased attenuation within the gallbladder. May be stones or sludge. May be secondary to beam hardening artifact from body habitus. Consider RIGHT upper quadrant ultrasound. 3. IUD in good position. 4. No ascites or free air.
[2022-06-15 09:23] LABS: Basophils # 0.1 10^3/uL (0.0-0.1); Basophils % 0.3 %; Eosinophils # 0.1 10^3/uL (0.0-0.8); Eosinophils % 0.7 %; Hematocrit 43.2 % (37.0-47.0); Hemoglobin 14.5 g/dL (11.5-15.3); Lymphocytes # 2.4 10^3/uL (0.8-4.8); Lymphocytes % 14.5 %; Mean Corpuscular HGB Conc 33.6 g/dL (30.0-36.0); Mean Corpuscular Hemoglobin 28.5 pg (28.0-34.0); Mean Corpuscular Volume 84.9 fl (81-99); Mean Platelet Volume 9.8 fL (7.4-10.4); Monocytes # 2.4 10^3/uL (0.2-0.9); Monocytes % 14.5 %; Neutrophils # 11.39 10^3/uL (1.8-7.7); Neutrophils % 69.6 %; Nucleated Red Blood Cells % 0 %; Platelet Count 319 10^3/cmm (130-400); Red Blood Count 5.09 10^6/uL (4.1-5.3); Red Cell Distribution Width 12.7 % (12.1-15.1); White Blood Count 16.4 10^3/uL (4.0-10.0)
[2022-06-15 09:39] LABS: Alanine Aminotransferase 7 U/L (0-33); Albumin Level 4.2 g/dL (3.5-5.2); Alkaline Phosphatase 89 U/L (35-105); Anion Gap 17.9 (5-19); Aspartate Amino Transferase 11 U/L (0-32); Blood Urea Nitrogen 10 mg/dL (6-20); Calcium 9.1 mg/dL (8.5-10.5); Carbon Dioxide 26 mmol/L (22-29); Chloride 96 mmol/L (98-107); Creatinine Clr Calc Pharmacy 177.0052; Glomerular Filtration Rate 132.2 mL/min (90-130); Glucose 106 mg/dL (65-115); Lipase 16 U/L (13-60); Osmolality Calculated 281 mOsm/kg (285-295); Potassium 3.9 mmol/L (3.5-5.1); Sodium 136 mmol/L (136-145); Total Bilirubin 1.1 mg/dL (0.15-1.2); Total Protein 8.2 g/dL (6.6-8.7)
[2022-06-15 10:00] VITALS: BP 131/86; PULSE 98; O2SAT 97
[2022-06-15 10:21] LABS: Add Urine Microscopic? YES; Bilirubin Urine Neg (Negative); Blood Urine Neg (Negative); Glucose Urine UA Norm (Normal); Ketones Urine 1+ (Negative); Leukocyte Esterase Urine Trace (Negative); Nitrate Urine Negative (Negative); Protein Urine Trace (Negative); Specific Gravity, Urine 1.005 (1.005-1.030); Urine Appearance Hazy (CLEAR); Urine Color Light yellow (Yellow); Urobilinogen Urine 1 mg/dL (Negative); pH Urine 7 (5-7)
[2022-06-15 10:22] LABS: Add Urine Culture? No; Amorphous Sediment Urine TRACE /hpf; Squamous Epithelial Cell Urine 0-4 /hpf (0-5); WBC Urine 0-4 /hpf (0-5)
[2022-06-15 10:30] VITALS: BP 135/84; PULSE 103; O2SAT 99
--- NOTE | 2022-06-15 10:40 | W.ED.ABDPA2 ---
HPI - Abdominal Pain General: Chief Complaint: Abdominal Pain Stated Complaint: abd pain/left side Time Seen by Provider: 06/15/22 08:35 Source: patient Mode of arrival: ambulatory History of Present Illness: 47-year-old female presents emergency room complaining of right-sided abdominal pain. She had this for last couple days she thought she was constipated she took a laxative had a good bowel movement and still has abdominal discomfort and cramping. She denies any fever sweats chills no medication melena hematemesis or coffee-ground emesis. MD elicited complaint: abdominal pain Onset (ago): day(s) Pain Consistency: intermittent Location: LLQ Severity: mild Quality: cramping Exacerbating factors: nothing Relieving factors: nothing Associated Symptoms: Denies anorexia, belching, bloating, change in bowel habits, change in stool character, chills, coffee ground emesis, constipation, GI cramping, diarrhea, dyspepsia, dysuria, excessive flatus, fever(s), heartburn, hematochezia, hematuria, hematemesis, fecal incontinence, loose stools, melena, nausea, poor appetite, syncope and vomiting Review of Systems Const: Denies: fever(s), chills, fatigue or malaise ENMT: Denies: throat pain, ear or mastoid pain, nasal discharge or nasal congestion Card: Denies: syncope Resp: Denies: dyspnea, productive cough or non-productive cough GI: Reports: abdominal pain; Denies: nausea, vomiting, hematemesis, coffee ground emesis, heartburn, diarrhea, constipation, bloating, GI cramping, belching, excessive flatus, fecal incontinence, change in bowel habits, change in stool character, hematochezia or melena : Denies: dysuria or hematuria Skin/Breast: Denies: rash or pruritus PFSH ED PFSH: Medical History Asthma Asthma thought to be because of her allergies and she states that as long as she takes her medication and her Advair she does not need to use any albuterol inhalers. Central hypothyroidism Diagnosed in 2019 and is on medication managed by recording artist Dr. BARRAZA Chronic pain Hypertension Diagnosed in her mid 20s and has been on medication since then. She follows up with her primary care provider. IBS (irritable bowel syndrome) Diagnosed since her 30s. Not currently on any medication. Watches her diet. No pertinent past medical history Denies diabetes, seizures, DVT/PE PCP: Dr. Bharati Odom Polycystic disease, ovaries Patient states that she was diagnosed with PCOS in her 30s. Bleeding and endometrial protection currently with the Mirena. Surgical History History of back surgery x 2 09/2019--- performed in [place]-had L4 and L5 fused April/2020 in [place] Hx of section 2007 in [place] Hx of laparoscopy At the age of 19--laparoscopy performed for ovarian cysts-she was told that the cyst had spontaneously ruptured and she did not have to have anything done. Family History Family/Other Diabetes maternal aunt Stroke maternal aunt Hypertension maternal aunt, maternal uncle Father Hypertension Hyperlipidemia Mother Hypertension Hyperlipidemia Thyroid condition Grandmother Hypertension maternal Grandfather Hypertension maternal Denies family history of Colon cancer Ovarian cancer Heart disease Breast cancer Uterine cancer Physical Exam Const: COMMON NORMALS: no acute distress GENERAL APPEARANCE: cooperative and comfortable ORIENTATION/CONSCIOUSNESS: Yes awake, Yes oriented to person, Yes oriented to place and Yes oriented to time HENMT: COMMON NORMALS: normocephalic, atraumatic and hearing grossly normal bilaterally HEAD & SCALP: normocephalic and atraumatic Resp: COMMON NORMALS: normal respiratory effort, No retractions, No use of accessory muscles and clear to auscultation bilaterally AUSCULTATION: clear to auscultation bilaterally Cardio: COMMON NORMALS: regular rate, regular rhythm and No murmurs present (Cardio) RATE: regular rate RHYTHM: regular rhythm GI: COMMON NORMALS: Soft to palpation and No hepatosplenomegaly present AUSCULTATION: Yes normoactive bowel sounds PALPATION: Yes Soft to palpation, No Tenderness to palpation present (GI), No Guarding due to palpation present (GI) and Yes No hepatosplenomegaly present Extremity: COMMON NORMALS: normal to inspection, capillary refill normal, no clubbing, cyanosis or edema, no calf tenderness and no pedal edema Neuro: SENSORIUM/ORIENTATION: Yes oriented to person, Yes oriented to place and Yes oriented to time Skin: COMMON NORMALS: no rashes or lesions noted GENERAL SKIN EXAM: no rashes or lesions noted Course Vital Signs: Vital signs: Vital Signs Temperature 98.1 F 06/15/22 08:39 Pulse Rate 103 H 06/15/22 10:30 Respiratory Rate 16 06/15/22 08:39 Blood Pressure 135/84 06/15/22 10:30 Pulse Oximetry 99 06/15/22 10:30 Oxygen Delivery Me thod 06/15/22 08:39 MDM - Abdominal Pain Medical Decision Making Labs and imaging reviewed chest x-ray unremarkable. CT did not show any acute pathology white count mildly elevated. She is on antibiotics also on Ozempic those both could be causes of her stomach discomfort clear liquid diet for the next couple days if not improving follow-up with primary care return to the emergency room if worsens. Medical Records I reviewed the patient's medical records. Lab Data I reviewed the patient's lab results. 06/15/22 09:04 06/15/22 09:04 Labs/Radiology: Radiology Impressions Chest X-Ray 06/15/22 09:06 IMPRESSION: No acute chest abnormality. Abdomen/Pelvis CT 06/15/22 09:19 IMPRESSION: 1. No appendicitis or renal obstruction. 2. Mild increased attenuation within the gallbladder. May be stones or sludge. May be secondary to beam hardening artifact from body habitus. Consider RIGHT upper quadrant ultrasound. 3. IUD in good position. 4. No ascites or free air. Laboratory Results WBC 16.4 10^3/uL (4.0-10.0) H 06/15/22 09:04 RBC 5.09 10^6/uL (4.1-5.3) 06/15/22 09:04 Hgb 14.5 g/dL (11.5-15.3) 06/15/22 09:04 Hct 43.2 % (37.0-47.0) 06/15/22 09:04 MCV 84.9 fl (81-99) 06/15/22 09:04 MCH 28.5 pg (28.0-34.0) 06/15/22 09:04 MCHC 33.6 g/dL (30.0-36.0) 06/15/22 09:04 RDW 12.7 % (12.1-15.1) 06/15/22 09:04 Plt Count 319 10^3/cmm (130-400) 06/15/22 09:04 MPV 9.8 fL (7.4-10.4) 06/15/22 09:04 Neut % (Auto) 69.6 % 06/15/22 09:04 Lymph % (Auto) 14.5 % 06/15/22 09:04 [place] % (Auto) 14.5 % 06/15/22 09:04 Eos % (Auto) 0.7 % 06/15/22 09:04 Baso % (Auto) 0.3 % 06/15/22 09:04 Neut # (Auto) 11.39 10^3/uL (1.8-7.7) H 06/15/22 09:04 Lymph # (Auto) 2.4 10^3/uL (0.8-4.8) 06/15/22 09:04 [place] # (Auto) 2.4 10^3/uL (0.2-0.9) H 06/15/22 09:04 Eos # (Auto) 0.1 10^3/uL (0.0-0.8) 06/15/22 09:04 Baso # (Auto) 0.1 10^3/uL (0.0-0.1) 06/15/22 09:04 Nucleated RBC % (auto) 0 % 06/15/22 09:04 Nucleated RBCs # 0.0 /100WBC 06/15/22 09:04 Sodium 136 mmol/L (136-145) 06/15/22 09:04 Potassium 3.9 mmol/L (3.5-5.1) 06/15/22 09:04 Chloride 96 mmol/L (98-107) L 06/15/22 09:04 Carbon Dioxide 26 mmol/L (22-29) 06/15/22 09:04 Anion Gap 17.9 (5-19) 06/15/22 09:04 BUN 10 mg/dL (6-20) 06/15/22 09:04 Creatinine 0.5 mg/dL (0.5-0.9) 06/15/22 09:04 GFR Calculation 132.2 mL/min (90-130) H 06/15/22 09:04 Glucose 106 mg/dL (65-115) 06/15/22 09:04 Calculated Osmolality 281 mOsm/kg (285-295) L 06/15/22 09:04 Calcium 9.1 mg/dL (8.5-10.5) 06/15/22 09:04 Total Bilirubin 1.1 mg/dL (0.15-1.2) 06/15/22 09:04 AST 11 U/L (0-32) 06/15/22 09:04 ALT 7 U/L (0-33) 06/15/22 09:04 Alkaline Phosphatase 89 U/L (35-105) 06/15/22 09:04 Total Protein 8.2 g/dL (6.6-8.7) 06/15/22 09:04 Albumin 4.2 g/dL (3.5-5.2) 06/15/22 09:04 Globulin 4.0 g/dL (1.3-4.6) 06/15/22 09:04 Lipase 16 U/L (13-60) 06/15/22 09:04 Urine Color Light yellow (Yellow) 06/15/22 09:57 Urine Appearance Hazy (CLEAR) A 06/15/22 09:57 Urine pH 7 (5-7) 06/15/22 09:57 Ur Specific [place] 1.005 (1.005-1.030) 06/15/22 09:57 Urine Protein Trace (Negative) 06/15/22 09:57 Urine Glucose (UA) Norm (Normal) 06/15/22 09:57 Urine Ketones 1+ (Negative) H 06/15/22 09:57 Urine Blood Neg (Negative) 06/15/22 09:57 Urine Nitrate Negative (Negative) 06/15/22 09:57 Urine Bilirubin Neg (Negative) 06/15/22 09:57 Urine Urobilinogen 1 mg/dL (Negative) H 06/15/22 09:57 Ur Leukocyte Esterase Trace (Negative) H 06/15/22 09:57 Urine RBC None /hpf (0-2) 06/15/22 09:57 Urine WBC 0-4 /hpf (0-5) H 06/15/22 09:57 Ur Squamous Epith Cells 0-4 /hpf (0-5) H 06/15/22 09:57 Amorphous Sediment Trace /hpf 06/15/22 09:57 Urine Bacteria None /hpf (NONE) 06/15/22 09:57 Discharge Plan Discharge Patient Disposition: Home Clinical Impression: Abdominal pain Condition: Stable Prescriptions: No Action Mirena 20 mcg/24 hours (5 yrs) 52 mg intrauterine device See Rx Instructions .ROUTE .COMPLEX Rx Instructions: intrauterinely every five years PreserVision AREDS [id number],[id number] capsule 1 cap PO BID magnesium 200 mg tablet 200 mg PO DAILY amoxicillin-pot clavulanate 875-125 mg tablet 1 tab PO BID 10 Days Qty: 20 0RF fluticasone propionate 50 mcg/actuation spray,suspension 1 spray intranasal DAILY PRN (Reason: allergy symptoms) Qty: 16 3RF metoprolol tartrate 50 mg tablet 75 mg PO BID Qty: 270 1RF albuterol sulfate 90 mcg/actuation HFA aerosol inhaler 2 inh inhalation Q6H PRN (Reason: shortness of breath or wheezing) Qty: 8.5 1RF spironolactone 100 mg tablet 100 mg PO DAILY Qty: 90 3RF pregabalin 100 mg capsule 100 mg PO BID Qty: 60 3RF levothyroxine 75 mcg tablet 75 mcg PO DAILY Qty: 90 1RF Rx Instructions: 75 MCG Monday till Monday and half on Monday hydrochlorothiazide 25 mg tablet 25 mg PO QAM Qty: 90 3RF Ozempic 0.25 mg or 0.5 mg(2 mg/1.5 mL) pen injector See Rx Instructions .ROUTE .COMPLEX Qty: 3.2 0RF Dose Instruction: inject 1mg (0.8ml) SUBCUTANEOUSLY EVERY 7 DAYS FOR FOUR weeks Rx Instructions: inject 1mg (0.8ml) SUBCUTANEOUSLY EVERY 7 DAYS FOR FOUR weeks Glucosamine 1 tab PO DAILY@0600 fluticasone propion-salmeterol 250-50 mcg/dose blister with device 1 inh inhalation BID baclofen 10 mg tablet 10 mg PO TID PRN (Reason: Muscle Spasm) Kalli-D 12 Hour 60-120 mg tablet extended release 12 hr 1 tab PO BID Discharge Orders: Discharge ED (Routine); Ordered 06/15/22 Ordered By: Pavan Carbajal Referrals: Bharati Odom MD [Primary Care Provider] - Discharge Diet: Clear Liquid Discharge Activity: Increase activity as tolerated Patient Instructions: Abdominal Pain (ED), Opioid Safety, Pain Management Activity Restrictions/Additional Instructions: You were seen today for abdominal pain CT the abdomen did not show any acute problems. Your liver functions and kidney functions were normal urine was normal. There was a slight elevation in your total white blood count. Recommend clear liquid diet for the next several days and advance as tolerated if symptoms persist follow-up with primary care. Coding Level of Care Code ED [employer] for Rubi Cobian
[2022-06-15 11:33] VITALS: BP 131/88; PULSE 115; RESP 18; O2SAT 98
== END 2022-06-15 11:35 | disposition home or self-care (01) ==
PROVIDERS: Emergency Provider Family Medicine; PCP Family Medicine
DX: R10.32 Left lower quadrant pain (principal); I10 Essential (primary) hypertension
CPT/HCPCS: 71045; 74176; 80053; 81001; 83690; 85025; 93005; 99285

== ENCOUNTER 2022-06-24 08:47 | Outpatient (CLI) | payer OTHER, SELFPAY ==
--- NOTE | 2022-06-24 | US_ITS ---
WS: [id number] ABDOMINAL ULTRASOUND LIMITED REASON FOR EXAM: R10.9 - Unspecified abdominal pain COMPARISON: None available. ORDER DATE: 06/24/2022 9:20 AM TECHNIQUE: Grayscale and Doppler ultrasound examination of the abdomen. FINDINGS: Pancreas: Unremarkable as visualized Abdominal aorta and IVC: Unremarkable with aorta 18 mm in diameter IVC 21 mm in diameter Liver: Liver measures 16.9 cm in length. Normal echotexture Gallbladder: There is a tiny calculus about 4 mm in size near the gallbladder neck. Gallbladder wall thickness measures 0.3 mm. Common bile duct diameter 2.8 mm in width Right kidney: Right kidney measures 12.4 cm x 4.7 cm x 5.5 cm. US/US gall bladder 45621 IMPRESSION: Single gallbladder calculus no acute gallbladder wall change
== END 2022-06-24 08:48 | disposition home or self-care (01) ==
LOC: RAD 08:48
PROVIDERS: PCP Family Medicine; Visit Provider Nurse Practitioner Family
DX: R10.9 Unspecified abdominal pain (principal); K80.20 Calculus of gallbladder without cholecystitis without obstruction
CPT/HCPCS: 76705

== ENCOUNTER 2022-07-08 08:08 | Outpatient (CLI) | payer OTHER, SELFPAY ==
--- NOTE | 2022-07-08 08:43 | MM_ITS ---
WS: [id number] BILATERAL SCREENING DIGITAL TOMOSYNTHESIS MAMMOGRAM WITH CAD HISTORY: SCREENING COMPARISON: None available. Bilateral CC and MLO views with tomosynthesis and synthetic mammography submitted. Computer aided det ection analyzed. Breast composition: There are scattered areas of fibroglandular density. No suspicious masses, microc alcifications or architectural distortion. MM/[place] [id number] IMPRESSION: BI-RADS: 1-Negative FOLLOW UP: 1 Year Follow-up
== END 2022-07-08 08:09 | disposition home or self-care (01) ==
PROVIDERS: PCP Family Medicine; Visit Provider Family Medicine
DX: Z12.31 Encounter for screening mammogram for malignant neoplasm of breast (principal); I10 Essential (primary) hypertension; R73.03 Prediabetes; E03.8 Other specified hypothyroidism
CPT/HCPCS: 77063; 77067; 80053; 80061; 83036; 84439; 84443; 85025

== ENCOUNTER → 2022-11-22 15:14 | Outpatient (BNVA) | payer OTHER, SELFPAY | PROVIDERS: PCP Family Medicine; Visit Provider Emergency Medicine | DX: J06.9 Acute upper respiratory infection, unspecified (principal) | CPT/HCPCS: 87426 ==

== ENCOUNTER 2023-02-01 09:03 | Outpatient (CLI) | payer OTHER, SELFPAY ==
[2023-02-01 09:54] LABS: Basophils % 0.3 %; Eosinophils # 0.2 10^3/uL (0.0-0.8); Eosinophils % 2.7 %; Hematocrit 41.5 % (36-47); Lymphocytes # 2.3 10^3/uL (0.8-4.8); Lymphocytes % 29.4 %; Mean Corpuscular HGB Conc 33.3 g/dL (30-55); Mean Corpuscular Hemoglobin 29.6 pg (27-33); Mean Corpuscular Volume 88.9 fl (85-98); Mean Platelet Volume 9.3 fL (7.4-10.4); Monocytes # 0.6 10^3/uL (0.2-0.9); Monocytes % 7.8 %; Neutrophils # 4.67 10^3/uL (1.8-7.7); Neutrophils % 59.2 %; Nucleated Red Blood Cells % 0 %; Platelet Count 290 10^3/cmm (157-399); Red Blood Count 4.67 10^6/uL (3.85-5.65); Red Cell Distribution Width 13.2 % (12.1-15.1); White Blood Count 7.87 10^3/uL (3.29-11.43)
[2023-02-01 10:15] LABS: Estmated Average Glucose 105; Hemoglobin A1C 5.3 % (4.0-6.0)
[2023-02-01 10:21] LABS: Creatinine Urine, Random 27 mg/dL (28-217); Microalbum Creatinine Ratio Ur 37 mg/dL (0-20); Microalbumin Random Urine 1 ug/dL (0-20)
[2023-02-01 10:29] LABS: Alanine Aminotransferase 8 U/L (0-33); Albumin Level 4.2 g/dL (3.5-5.2); Alkaline Phosphatase 77 U/L (35-105); Anion Gap 12.7 (5-19); Aspartate Amino Transferase 14 U/L (0-32); Blood Urea Nitrogen 15 mg/dL (6-20); Calcium 9.2 mg/dL (8.5-10.5); Carbon Dioxide 29 mmol/L (22-29); Chloride 106 mmol/L (98-107); Chol HDL Ratio 3.49 mg/dL (0.0-4.40); Cholesterol 150 mg/dL (0-200); Globulin 2.6 g/dL (1.3-4.6); Glomerular Filtration Rate 89.7 mL/min (90-130); Glucose 86 mg/dL (65-115); HDL Cholesterol 43 mg/dL (60-100); LDL Cholesterol Calculated 88 mg/dL (50-129); LDL HDL Ratio 2.05 RATIO (0.00-3.22); Osmolality Calculated 296 mOsm/kg (285-295); Potassium 4.7 mmol/L (3.5-5.1); Sodium 143 mmol/L (136-145); Thyroid Stimulating Hormone 2.35 uIU/mL (0.27-4.20); Total Protein 6.8 g/dL (6.6-8.7); Triglycerides 94 mg/dL (0-150)
[2023-02-01 11:11] LABS: Free T4 Free Thyroxine 1.14 ng/dL (0.82-1.77)
[2023-02-02 07:44] LABS: T3 Total 125 ng/dL (76-181)
== END 2023-02-01 09:04 | disposition home or self-care (01) ==
PROVIDERS: Absent Provider Internal Medicine; PCP Family Medicine; Visit Provider Family Medicine
DX: E03.8 Other specified hypothyroidism (principal); R73.03 Prediabetes; I10 Essential (primary) hypertension; E66.9 Obesity, unspecified
CPT/HCPCS: 36415; 80053; 80061; 82044; 83036; 84439; 84443; 84480; 85025

== ENCOUNTER → 2023-02-07 08:26 | Outpatient (BNVA) | payer OTHER, SELFPAY | PROVIDERS: PCP Family Medicine; Visit Provider Nurse Practitioner Women's Health | DX: Z30.431 Encounter for routine checking of intrauterine contraceptive device (principal); Z12.11 Encounter for screening for malignant neoplasm of colon; E28.2 Polycystic ovarian syndrome; E23.7 Disorder of pituitary gland, unspecified; E03.8 Other specified hypothyroidism; R73.03 Prediabetes | CPT/HCPCS: 81025 ==

== ENCOUNTER 2023-03-15 07:27 | Day surgery (SDC) | payer OTHER, SELFPAY ==
[2023-03-15 07:40] VITALS: BP 129/70; PULSE 83; RESP 18; TEMP 36.2; O2SAT 98; BMI 48.6
[2023-03-15 07:45] LABS: OR HCG Qualitative Urine Negative (Negative)
[2023-03-15] MEDS: sodium chloride 0.9% 1,000 ML 30 ML IV (07:54)
--- NOTE | 2023-03-15 08:05 | ANES.PREANE2 ---
Pre-Anesthetic Assessment Height/Weight: Height 1.6 m Weight 124.738 kg Temp Pulse Resp BP Pulse Ox O2 Del Method 97.1 F L 83 18 129/70 98 Room Air 03/15/23 07:40 03/15/23 07:40 03/15/23 07:40 03/15/23 07:40 03/15/23 07:40 03/15/23 07:40 Preop Diagnosis: screening Operation Date: 03/15/23 08:30 [place] [address] colon G0121 screen colon A risk Z12.11(Not Applicable) - Ziyad Dexter, DO Was Beta Dorina taken within 24 hours: Yes Was Clonidine taken within 24 hours: N/A Last intake: Intake Last Liquid Date 03/14/23 Last Liquid Time 21:00 Last Solid Date 03/13/23 Last Solid Time 20:00 Social No tobacco Exam alert and oriented x 3 Airway Submandibular: within normal limits Cervical ROM: within normal limits Mallampati: Class III Dentition: full History/ROS No significant history except as noted Pulmonary Asthma and Sleep Apnea (CPAP) CV/HEM Hypertension None reported Hepatic None reported GI None reported Metabolic Morbid Obesity and Thyroid Disease [facility] [place] Lower Back Pain Neuropsych None reported Anesthetic Plan ASA status: 3 Anesthesia: MAC Risk of > 500 ml blood loss (7ml/kg in children): No Medications/Allergies Home Medications Medication Instructions Recorded Confirmed Last Taken Type levonorgestrel 21 mcg/24 hours (8 See Rx Instructions .Route .COMPLEX 02/03/20 03/13/23 03/11/20 History yrs) 52 mg intrauterine device (Mirena) magnesium 200 mg tablet 200 mg PO DAILY 05/14/21 03/13/23 06/15/22 History vitamins A,C,X-zvxk-vmaaqs 4,296 1 cap PO BID 05/14/21 03/13/23 03/13/23 History mcg-226 mg-90 mg capsule (PreserVision AREDS) fluticasone propionate 50 1 spray intranasal DAILY PRN 12/30/21 03/13/23 03/06/23 Rx mcg/actuation nasal allergy symptoms #16 grams spray,suspension albuterol sulfate 90 mcg/actuation 2 inh inhalation Q6H PRN shortness 02/23/22 03/13/23 Unknown Rx aerosol inhaler of breath or wheezing #8.5 grams hydrochlorothiazide 25 mg tablet 25 mg PO QAM #90 tabs 06/09/22 03/15/23 03/14/23 Rx metoprolol tartrate 50 mg tablet 75 mg (1.5 x 50 mg) PO BID #270 07/08/22 03/15/23 03/15/23 Rx tabs spironolactone 100 mg tablet 100 mg PO DAILY #90 tabs 07/08/22 03/15/23 03/14/23 Rx liraglutide 0.6 mg/0.1 mL (18 mg/3 1.8 mg (0.3 mL) SUBCUT DAILY 90 08/19/22 03/13/23 03/08/23 Rx mL) subcutaneous pen injector days #27 mL (Victoza 2-Keny) pregabalin 100 mg capsule 100 mg PO BID #60 caps 11/29/22 03/15/23 03/14/23 Rx baclofen 10 mg tablet See Rx Instructions .Route 12/30/22 03/15/23 03/14/23 Rx .COMPLEX #90 tabs fexofenadine 60 mg-pseudoephedrine 1 tab PO Q12H PRN allergy symptoms 01/02/23 03/13/23 03/13/23 Rx ER 120 mg tablet,ext.release,12 hr #30 tabs (Kalli-D 12 Hour) latanoprost 0.005 % eye drops 1 drp ophthalmic (eye) DAILY 02/07/23 03/15/23 03/14/23 History levothyroxine 75 mcg tablet 75 mcg PO DAILY #90 tabs 02/07/23 03/15/23 03/15/23 Rx fluticasone 250 mcg-salmeterol 50 See Rx Instructions .Route 02/13/23 03/13/23 03/13/23 Rx mcg/dose blistr powdr for .COMPLEX #60 ea inhalation Allergies Allergy/AdvReac Type Severity Reaction Status Date / Time erythromycin base AdvReac ADR-Nausea Verified 02/14/23 10:07 lisinopril AdvReac ADR-Chest Verified 02/14/23 10:07 Pain propoxyphene AdvReac ADR-Nausea Verified 02/14/23 10:07 [From Darvocet-N] tramadol [From Ultram] AdvReac Unable to Verified 02/14/23 10:07 move-can take ibuprofen Current Medications Generic Name Dose Route Start Last Admin Trade Name Camron PRN Reason Stop Dose Admin Sodium Chloride 1,000 mls @ 30 mls/hr 03/15/23 07:45 03/15/23 07:54 Sodium Chloride 0.9% IV 03/16/23 07:44 30 mls/hr .Q24H EMIGDIO Administration PFSH Anesthesia Medical History Asthma Asthma thought to be because of her allergies and she states that as long as she takes her medication and her Advair she does not need to use any albuterol inhalers. Central hypothyroidism Diagnosed in 2019 and is on medication managed by provider service representative Dr. BARRAZA Chronic pain Hypertension Diagnosed in her mid 20s and has been on medication since then. She follows up with her primary care provider. IBS (irritable bowel syndrome) Diagnosed since her 30s. Not currently on any medication. Watches her diet. No pertinent past medical history Denies diabetes, seizures, DVT/PE PCP: Dr. Bharati Odom Polycystic disease, ovaries Patient states that she was diagnosed with PCOS in her 30s. Bleeding and endometrial protection currently with the Mirena. Surgical History History of back surgery x 2 09/2019--- performed in [place]-had L4 and L5 fused April/2020 in [place] Hx of section 2007 in [place] Hx of laparoscopy At the age of 19--laparoscopy performed for ovarian cysts-she was told that the cyst had spontaneously ruptured and she did not have to have anything done. Family History Family/Other Diabetes maternal aunt Stroke maternal aunt Hypertension maternal aunt, maternal uncle Father Hypertension Hyperlipidemia Mother Hypertension Hyperlipidemia Thyroid disease Grandmother Hypertension maternal Grandfather Hypertension maternal Denies family history of Colon cancer Ovarian cancer Heart disease Breast cancer Uterine cancer Data Anesthesia Cardiac Studies: Echocardiogram Ultrasound 06/21/19 Holter Monitor 04/08/21
--- NOTE | 2023-03-15 09:58 | W.PM.OPSUD ---
Surgery/Procedure H&P Update DATE OF PROCEDURE: March 15, 2023 DATE H&P PERFORMED: 02/14/23 H&P UPDATE INFORMATION: I have reviewed H&P completed within last 30 days, I have examined patient prior to procedure and No changes to prior documentation PREOP DIAGNOSIS: screening PLANNED PROCEDURE: Operation Date: 03/15/23 08:30 Proposed Procedures p 36612 colon G0121 screen colon A risk Z12.11(Not Applicable) - Ziyad Dexter, DO
[2023-03-15 10:16] VITALS: BP 131/95; PULSE 82; RESP 16; TEMP 36.8; O2SAT 98
[2023-03-15 10:28] VITALS: BP 106/76; PULSE 69; RESP 18; O2SAT 96
--- NOTE | 2023-03-15 10:45 | ANE.PACU2 ---
Inpatient post-anesthesia follow up: Airway intact: Yes Vital signs: Temperature 98.2 F Pulse Rate 69 Respiratory Rate 18 Blood Pressure 106/76 Pulse Oximetry 96 Oxygen Delivery Me thod Room Air Oxygen Flow Rate Fraction of Inspir ed Oxygen Hydration adequate: Yes Nausea and vomiting: No Pain level: 1 Mental status: Baseline
== END 2023-03-15 10:48 | disposition home or self-care (01) ==
PROVIDERS: PCP Family Medicine; Visit Provider Surgery
PROC: 0DJD8ZZ Inspection of Lower Intestinal Tract, Via Natural or Artificial Opening Endoscopic (ICD-10-PCS; CPT 45378; principal; 2023-03-15 08:30)
DX: Z12.11 Encounter for screening for malignant neoplasm of colon (principal); E66.01 Morbid (severe) obesity due to excess calories; Z68.42 Body mass index [BMI] 45.0-49.9, adult; E03.9 Hypothyroidism, unspecified; I10 Essential (primary) hypertension; E28.2 Polycystic ovarian syndrome
CPT/HCPCS: 45378; 76937; 81025; 84703; J2704; J7030

== ENCOUNTER → 2023-08-04 08:26 | Outpatient (BNVA) | payer OTHER, SELFPAY | PROVIDERS: PCP Family Medicine; Visit Provider Internal Medicine | DX: I10 Essential (primary) hypertension (principal); K58.9 Irritable bowel syndrome, unspecified; E28.2 Polycystic ovarian syndrome; Z79.899 Other long term (current) drug therapy | CPT/HCPCS: 80053; 80061; 82306; 83036; 84439; 84443; 85025 ==

== ENCOUNTER → 2023-11-02 08:29 | Outpatient (BNVA) | payer OTHER, SELFPAY | PROVIDERS: PCP Internal Medicine; Visit Provider Registered Nurse Neonatal Intensive Care | DX: E23.7 Disorder of pituitary gland, unspecified (principal); E03.8 Other specified hypothyroidism | CPT/HCPCS: 84439; 84443 ==

== ENCOUNTER 2024-04-19 08:00 | Outpatient (CLI) | payer OTHER, SELFPAY ==
--- NOTE | 2024-04-19 08:03 | MM_ITS ---
WS: [id number] BILATERAL SCREENING DIGITAL TOMOSYNTHESIS MAMMOGRAM WITH CAD HISTORY: screening for breast CA COMPARISON: 07/08/2022, 04/30/2021 Bilateral CC and MLO views with tomosynthesis and synthetic mammography submitted. Computer aided det ection analyzed. Breast composition: There are scattered areas of fibroglandular density. No suspicious masses, microc alcifications or architectural distortion. MM/MM scr BI tomosynthesis [id number] IMPRESSION: BI-RADS: 2 - Benign. FOLLOW UP: 1 Year Follow-up
== END 2024-04-19 08:01 | disposition home or self-care (01) ==
LOC: RAD 08:00
PROVIDERS: PCP Internal Medicine; Visit Provider Family Medicine
DX: Z12.31 Encounter for screening mammogram for malignant neoplasm of breast (principal); R92.323 Mammographic fibroglandular density, bilateral breasts
CPT/HCPCS: 77063; 77067

== ENCOUNTER 2024-05-03 08:21 | Outpatient (CLI) | payer OTHER, SELFPAY ==
[2024-05-03 09:07] LABS: Free T4 Free Thyroxine 1.07 ng/dL (0.82-1.77); Thyroid Stimulating Hormone 1.86 uIU/mL (0.27-4.20)
== END 2024-05-03 08:22 | disposition home or self-care (01) ==
LOC: LAB 08:22
PROVIDERS: PCP Family Medicine; Visit Provider Internal Medicine
DX: E03.9 Hypothyroidism, unspecified (principal)
CPT/HCPCS: 36415; 84439; 84443

== ENCOUNTER → 2024-05-12 13:43 | Outpatient (BNVA) | payer OTHER, SELFPAY | PROVIDERS: PCP Family Medicine; Visit Provider Family Medicine | DX: J10.1 Influenza due to other identified influenza virus with other respiratory manifestations (principal) | CPT/HCPCS: 87400 ==

== ENCOUNTER 2024-07-19 12:55 | Outpatient (CLI) | payer OTHER, SELFPAY ==
[2024-07-19 13:43] LABS: Free T4 Free Thyroxine 1.04 ng/dL (0.82-1.77); Thyroid Stimulating Hormone 2.98 uIU/mL (0.27-4.20)
== END 2024-07-19 12:56 | disposition home or self-care (01) ==
PROVIDERS: PCP Family Medicine; Visit Provider Internal Medicine
DX: E03.9 Hypothyroidism, unspecified (principal)
CPT/HCPCS: 36415; 84439; 84443

== ENCOUNTER → 2024-08-22 09:58 | Outpatient (BNVA) | payer OTHER, SELFPAY | PROVIDERS: PCP Family Medicine; Visit Provider Family Medicine | DX: E53.8 Deficiency of other specified B group vitamins (principal); E55.9 Vitamin D deficiency, unspecified | CPT/HCPCS: 82306; 82607 ==

== ENCOUNTER 2024-11-01 16:24 | Outpatient (CLI) | payer OTHER, SELFPAY ==
[2024-11-01 17:28] LABS: Free T4 Free Thyroxine 1.09 ng/dL (0.82-1.77); Thyroid Stimulating Hormone 2.92 uIU/mL (0.27-4.20)
== END 2024-11-01 16:25 | disposition home or self-care (01) ==
PROVIDERS: PCP Family Medicine; Visit Provider Internal Medicine
DX: E03.9 Hypothyroidism, unspecified (principal); E23.6 Other disorders of pituitary gland; K59.00 Constipation, unspecified; R73.03 Prediabetes
CPT/HCPCS: 36415; 84439; 84443

== ENCOUNTER → 2025-01-10 08:44 | Outpatient (BNVA) | payer OTHER, SELFPAY | PROVIDERS: PCP Family Medicine; Visit Provider Family Medicine | DX: Z00.00 Encounter for general adult medical examination without abnormal findings (principal) | CPT/HCPCS: 80053; 80061; 84443; 85025 ==

== ENCOUNTER → 2025-01-22 08:00 | Outpatient (BNVA) | payer OTHER, SELFPAY | PROVIDERS: PCP Family Medicine; Visit Provider Podiatrist Foot & Ankle Surgery | DX: M79.89 Other specified soft tissue disorders (principal); I89.0 Lymphedema, not elsewhere classified; Q66.221 Congenital metatarsus adductus, right foot; L60.3 Nail dystrophy | CPT/HCPCS: 73630 ==